=== PATIENT | female | born 1975 | race Caucasian/White ===

== ENCOUNTER → 2017-07-09 | Outpatient (CLI) | payer OTHER ==
--- NOTE | 2017-07-09 12:36 | XR ---
Right shoulder HISTORY: Synovitis, tenosynovitis, right shoulder pain 3 views of the right shoulder No comparisons Bone mineralization is normal. Alignment is maintained. No fracture or dislocation. Questionable mini mal spurring at the inferior bony glenoid. Right lung apex as visualized is normal. IMPRESSION: There may be some early osteoarthritic change inferior bony labrum. Shoulder MRI may be o f benefit.
== END | disposition home or self-care (01) ==
LOC: RADXRMAIN 12:07
PROVIDERS: ATTEND Emergency Medicine
DX: M65.811 Other synovitis and tenosynovitis, right shoulder (principal)